=== PATIENT | male | born 1950 | race Caucasian/White ===

== ENCOUNTER → 2020-10-31 10:17 | Outpatient (CLI) | payer BC, SELFPAY ==
[2020-10-31 11:12] LABS: Alanine Aminotransferase 18 U/L (12-78); Albumin Level 4.5 g/dl (3.5-5.0); Albumin/Globulin Ratio 1.6 (1.1-1.8); Alkaline Phosphatase 87 U/L (38-126); Anion Gap 14.2 mEq/L (5-15); Aspartate Amino Transferase 24 U/L (17-59); Blood Urea Nitrogen 20 mg/dl (9-20); Calcium 9.4 mg/dl (8.4-10.2); Carbon Dioxide 26 mmol/L (22.0-30.0); Chloride 104 mmol/L (98-107); Chol/HDL Ratio 3.1 (1-3.5); Cholesterol 146 mg/dl (140-200); Estimated Glomerular Filt Rate 60 ml/min (>60); GFR (African American) 72 ML/MIN (>60); Globulin 2.8 g/dL (1.3-3.2); Glucose 105 mg/dl (74-100); HDL Cholesterol 47 mg/dl (40-60); Potassium 4.2 mmoL/L (3.5-5.1); Sodium 140 mmol/L (136-145); Total Protein,Serum 7.3 g/dl (6.3-8.2); Triglycerides 95 mg/dl (30-150); VLDL Cholesterol 19 mg/dL (0-40)
[2020-10-31 11:22] LABS: Direct LDL Cholesterol 65.61 mg/dL (100-129)
== END ==
PROVIDERS: Visit Provider Internal Medicine Adolescent Medicine
DX: I10 Essential (primary) hypertension (principal); E78.5 Hyperlipidemia, unspecified
CPT/HCPCS: 36415; 80053; 80061